=== PATIENT | male | born 1950 | race African-American/Black ===

== ENCOUNTER → 2019-04-03 | Day surgery (SDC) | payer MEDICARE, OTHER ==
--- NOTE | 2019-04-03 14:28 | RADIOLOGY REPORT (SQ) ---
EXAM DESCRIPTION: ARTHRO KNEE NJX CNTRST CT/MRI; FLUORO/NEEDLE PLACEMENT COMPLETED DATE/TIME: 04/03/2019 2:09 pm REASON FOR STUDY: M25.561 PAIN IN RIGHT KNEE M25.561 PAIN IN RIGHT KNEE COMPARISON: None. FLUOROSCOPY TIME: 0.09 minutes 1 images saved to PACS. LIMITATIONS: None. PROCEDURE: Procedure, risks, benefits and alternatives explained to patient who then gave written co nsent. The right knee was marked and a time-out was called for correct marking verification. Entry site marked using fluoroscopic guidance. Knee prepped and draped using sterile technique. Local ane sthesia achieved using 1% lidocaine injection. Hypodermic needle introduced into the joint space und er direct fluoroscopic visualization. Non-ionic contrast instilled to confirm intra-articular positi on. Additional dilute non-ionic contrast instilled. Needle removed and entry site covered with ster ile bandage. No immediate complications noted. TECHNIQUE: Digital images acquired during fluoroscopy and stored on PACS. Patient immediately take n to the CT suite for additional imaging. INJECTION LOCATION: Right knee. CONTRAST TYPE AND AMOUNT: 35 mL Omnipaque 300 IMPRESSION: SUCCESSFUL NEEDLE PLACEMENT AND INJECTION FOR RIGHT KNEE CT ARTHROGRAM. COMMENT: Quality ID 145: Final reports for procedures using fluoroscopy that document radiation exp osure indices, or exposure time and number of fluorographic images (if radiation exposure indices are not available) TECHNICAL DOCUMENTATION: JOB ID: [id number] [employer]- All Rights Reserved Reading location - IP/workstation name: [email or web address]
--- NOTE | 2019-04-03 15:20 | RADIOLOGY REPORT (SQ) ---
EXAM DESCRIPTION: CT RT LOWER EXTREMITY WITH COMPLETED DATE/TIME: 04/03/2019 1:53 pm REASON FOR STUDY: M25.561 PAIN IN RIGHT KNEE M25.561 PAIN IN RIGHT KNEE COMPARISON: None. TECHNIQUE: Post arthrographic imaging performed through the right knee with reformatted coronal and sagittal imaging windowed for bone and soft tissues. All CT scanners at this facility use dose modulation, iterative reconstruction, and/or weight based d osing when appropriate to reduce radiation dose to as low as reasonably achievable (ALARA). [facility]: Dose Right [facility]: CareDose [facility]: Dose Right [facility]: Teradose 4D [facility]: [employer] RADIATION DOSE: 4.7 mGy. LIMITATIONS: None. FINDINGS: SOFT TISSUES: No regional soft tissue masses or radiopaque foreign body noted. BONES: No suspicious bone lesion. No fracture. JOINT DISTENTION: Adequate distention with contrast. No intra-articular bodies. CHONDRAL SURFACES: Mild chondromalacia in the medial compartment MENISCI: Complex tear mid body medial meniscus best shown on coronal images 22-32. OTHER: No other significant finding. IMPRESSION: Complex tear mid body medial meniscus n TECHNICAL DOCUMENTATION: JOB ID: [id number] Quality ID # [id number]: Final reports with documentation of one or more dose reduction techniques (e.g., Au tomated exposure control, adjustment of the mA and/or kV according to patient size, use of iterative reconstruction technique) 2010 [employer]- All Rights Reserved Reading location - IP/workstation name: [email or web address]
== END ==
LOC: RAD 12:45
PROVIDERS: ATTEND Orthopaedic Surgery
DX: M25.561 Pain in right knee (principal)
CPT/HCPCS: 27369; 77002

== ENCOUNTER 2019-05-11 09:14 | Day surgery (SDC) | payer MEDICARE, OTHER ==
[2019-05-04 09:14] LABS: APPEARANCE,URINE SLIGHTLY-CLOUDY; BILIRUBIN,URINE NEGATIVE (NEGATIVE); COLOR,URINE YELLOW; GLUCOSE, URINE NEGATIVE (NEGATIVE); KETONES,URINE NEGATIVE (NEGATIVE); LEUKOCYTE ESTERASE,URINE NEGATIVE (NEGATIVE); NITRITE,URINE NEGATIVE (NEGATIVE); PROTEIN,URINE NEGATIVE (NEGATIVE); URINE SPECIFIC GRAVITY 1.016; UROBILINOGEN,URINE NEGATIVE mg/dL (<2.0)
[2019-05-04 09:14] LABS: HEMATOCRIT 50.1 % (37.9-51.0); HEMOGLOBIN 17.3 g/dL (13.5-17.0); MEAN CORPUSCULAR HEMOGLOBIN 30.7 pg (27.0-33.4); MEAN CORPUSCULAR HGB CONC 34.5 g/dL (32.0-36.0); MEAN CORPUSCULAR VOLUME 89 fl (80-97); PLATELET COUNT 230 10^3/uL (150-450); RED BLOOD COUNT 5.63 10^6/uL (4.35-5.55); RED CELL DISTRIBUTION WIDTH 16.1 % (11.5-14.0); WHITE BLOOD COUNT 5.6 10^3/uL (4.0-10.5)
[2019-05-04 09:34] LABS: ANION GAP 10 (5-19); BLOOD UREA NITROGEN 15 mg/dL (7-20); CALCIUM 9.8 mg/dL (8.4-10.2); CARBON DIOXIDE 31 mmol/L (22-30); CHLORIDE 99 mmol/L (98-107); GLUCOSE 85 mg/dL (75-110); POTASSIUM 3.7 mmol/L (3.6-5.0)
--- NOTE | 2019-05-04 16:53 | RADIOLOGY REPORT (SQ) ---
EXAM DESCRIPTION: CHEST PA/LATERAL COMPLETED DATE/TIME: 05/04/2019 9:28 am REASON FOR STUDY: PRE-OP COMPARISON: None. EXAM PARAMETERS: NUMBER OF VIEWS: two views TECHNIQUE: Digital Frontal and Lateral radiographic views of the chest acquired. RADIATION DOSE: NA LIMITATIONS: none FINDINGS: LUNGS AND PLEURA: No opacities, masses or pneumothorax. No pleural effusion. MEDIASTINUM AND HILAR STRUCTURES: No masses or contour abnormalities. HEART AND VASCULAR STRUCTURES: Heart normal size. No evidence for failure. BONES: No acute findings. HARDWARE: Pacemaker. OTHER: No other significant finding. IMPRESSION: NO SIGNIFICANT RADIOGRAPHIC FINDING IN THE CHEST. TECHNICAL DOCUMENTATION: JOB ID: [id number] [employer]- All Rights Reserved Reading location - IP/workstation name: [email or web address]
--- NOTE | 2019-05-04 16:55 | EKG REPORT ---
SEVERITY:- ABNORMAL ECG - ATRIAL-SENSED VENTRICULAR-PACED COMPLEXES NONSPECIFIC IVCD WITH LAD : Confirmed by: Kerline Queen MD 04-May-2019 16:54:43
[~2019-05-11 09:14] MED LIST: ALBUTEROL SULFATE 0.083% NEB 2.5 MG/3 ML AMPUL NEB PRN; CEFAZOLIN SODIUM 2 GM in DEXTROSE 5%-WATER 100 ML IV PRN; DEXAMETHASONE SOD PHOSPHATE INJ 4 MG/1 ML VIAL ONE; FENTANYL CITRATE INJ/PF 100 MCG/2 ML AMPUL ONE; LACTATED RINGERS 1000 ML IV PRN; LIDOCAINE 0.5% INJ-PF (5 MG/ML) 50 ML SDV SUBCUT PRN; MIDAZOLAM 2 MG/2 ML INJ ONE; ONDANSETRON HCL INJ/PF 4 MG/2 ML SDV ONE; PROPOFOL INJ 200 MG/20 ML VIAL IV ONE
[2019-05-11] MEDS ORDERED: FENTANYL CITRATE INJ/PF 100 MCG/2 ML AMPUL ONE (10:28)
[2019-05-11] MEDS ORDERED: MIDAZOLAM 2 MG/2 ML INJ ONE (10:30)
[2019-05-11] MEDS ORDERED: PROPOFOL INJ 200 MG/20 ML VIAL IV ONE (10:30)
[2019-05-11] MEDS ORDERED: BUPIVACAINE HCL 0.5 % INJ/PF 30 ML SDV ONE (10:31)
[2019-05-11] MEDS ORDERED: LIDOCAINE 1%/EPINEPHRINE INJ 20 ML VIAL ONE (10:31)
[2019-05-11 10:39] LABS: PROTHROMBIN TIME 15.3 SEC (11.4-15.4)
[2019-05-11 10:40] LABS: PARTIAL THROMBOPLASTIN TIME 32.6 SEC (23.5-35.8)
[2019-05-11] MEDS ORDERED: ALBUTEROL SULFATE 0.083% NEB 2.5 MG/3 ML AMPUL NEB ONE (11:00)
[2019-05-11] MEDS ORDERED: FENTANYL CITRATE INJ/PF 100 MCG/2 ML AMPUL IV PRN ×3 (12:09)
[2019-05-11] MEDS ORDERED: PROMETHAZINE HCL INJ 25 MG/1 ML VIAL IV PRN (12:09)
[2019-05-11] MEDS ORDERED: MEPERIDINE HCL/PF INJ 25 MG/1 ML DISP.SYRIN IV PRN (12:09)
[2019-05-11] MEDS ORDERED: DIPHENHYDRAMINE HCL 50 MG/ML VIAL IV PRN (12:09)
--- NOTE | 2019-05-11 12:27 | Operative Report ---
Operative Report DATE OF SURGERY: 05/11/19 PREOPERATIVE DIAGNOSIS: Right medial meniscal tear POSTOPERATIVE DIAGNOSIS: Right medial meniscal tear. 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 Intact ACL. Grade 1 chondral malacia lateral compartment. Lateral meniscal tear. Grade 2 chondral malacia the patellofemoral compartment OPERATION: Arthroscopic right partial medial and lateral meniscectomy SURGEON: LISSETH BELL ANESTHESIA: LMAC ESTIMATED BLOOD LOSS: Minimal PROCEDURE: With the patient supine on the operative table the right lower extremities prepped and draped in sterile fashion. The knee is insufflated with accommodation Marcaine, Xylocaine, and epinephrine through medial lateral patella portals. Portals are created in the arthroscopic equipment is introduced. The joint is examined in systematic fashion findings as above. Using combination of basket Lin, mechanical shaver, and electric frequency ablation probe a partial medial meniscectomy was performed from proximally 4:00 to 12:00 on the face of the dial. Similarly a partial lateral meniscectomy was performed from approximately 8:00 to 12:00 on the face of the dial. The joint is again examined in systematic fashion no new findings. Instrumentation was removed. Portals reapproximated interrupted nylon. A sterile compressive dressing was applied and the patient's return to the PACU in satisfactory condition.
--- NOTE | 2019-05-11 12:30 | Discharge Summary ---
Discharge Summary (SDC) - Discharge Final Diagnosis: Right medial meniscal tear Date of Surgery: 05/11/19 Discharge Date: 05/11/19 Condition: Good Treatment or Instructions: Weightbearing as tolerated. Remove compressive wrap on Saturday. Underlying OpSite dressing can be left intact until you return to the office. You may shower but do not immerse the extremity in a bath or a pool. Prescriptions: Oxycodone HCl/Acetaminophen [Percocet 5-325 mg Tablet] 1 tab PO Q6 PRN #25 tab PRN Reason: Referrals: NARCISO OLIVER MD [Primary Care Provider] - Discharge Diet: Regular Respiratory Treatments at Home: Deep Breathing/Coughing Discharge Activity: Balance Activity w/Rest, No tub bath Home Care Assistance: None Needed Report the Following to Your Physician Immediately: Shortness of Breath, Fever over 101 Degrees, Drainage-Foul Smelling
[2019-05-11 14:13] VITALS: BP 128/70
== END 2019-05-11 14:05 | disposition home or self-care (01) ==
LOC: OROUT 09:14
PROVIDERS: ATTEND Orthopaedic Surgery
DX: M23.303 Other meniscus derangements, unspecified medial meniscus, right knee (principal); M23.300 Other meniscus derangements, unspecified lateral meniscus, right knee; M22.41 Chondromalacia patellae, right knee; I10 Essential (primary) hypertension; E78.5 Hyperlipidemia, unspecified; I25.10 Atherosclerotic heart disease of native coronary artery without angina pectoris; Z79.01 Long term (current) use of anticoagulants; Z79.899 Other long term (current) drug therapy; Z95.0 Presence of cardiac pacemaker; Z87.891 Personal history of nicotine dependence
CPT/HCPCS: 93005; 36415 ×2; 84132; 85027; 85610; 85730; 80048; 81001; 71046; 93010; 29880; J2250; J3490 ×2; J0690; J3010; J7060; J2704; A9270; 1400; J1100; J2405

== ENCOUNTER → 2019-07-17 | Outpatient (CLI) | payer MEDICARE, OTHER ==
[2019-07-17 09:09] LABS: ABSOLUTE BASOPHILS # (AUTO) 0.1 10^3/uL (0.0-0.2); ABSOLUTE EOSINOPHILS # (AUTO) 0.1 10^3/uL (0.0-0.6); ABSOLUTE LYMPHOCYTES (AUTO) 1.9 10^3/uL (0.5-4.7); ABSOLUTE MONOCYTES (AUTO) 0.4 10^3/uL (0.1-1.4); ABSOLUTE NEUT (AUTO) 3.4 10^3/uL (1.7-8.2); BASOPHILS % (AUTO) 0.9 % (0-2); EOSINOPHILS % (AUTO) 2.4 % (0-6); HEMATOCRIT 46.2 % (37.9-51.0); HEMOGLOBIN 16.5 g/dL (13.5-17.0); LYMPHOCYTES % (AUTO) 32.4 % (13-45); MEAN CORPUSCULAR HEMOGLOBIN 31.4 pg (27.0-33.4); MEAN CORPUSCULAR HGB CONC 35.6 g/dL (32.0-36.0); MEAN CORPUSCULAR VOLUME 88 fl (80-97); MONOCYTES % (AUTO) 7.4 % (3-13); PLATELET COUNT 264 10^3/uL (150-450); RED BLOOD COUNT 5.24 10^6/uL (4.35-5.55); RED CELL DISTRIBUTION WIDTH 14.6 % (11.5-14.0); SEGMENTED NEUTROPHILS % (AUTO) 56.9 % (42-78); TOTAL CELLS COUNTED % (AUTO) 100 %
[2019-07-17 09:28] LABS: ANION GAP 11 (5-19); BLOOD UREA NITROGEN 14 mg/dL (7-20); CALCIUM 9.5 mg/dL (8.4-10.2); CARBON DIOXIDE 29 mmol/L (22-30); CHLORIDE 100 mmol/L (98-107); GLUCOSE 102 mg/dL (75-110); POTASSIUM 3.4 mmol/L (3.6-5.0)
--- NOTE | 2019-07-17 10:11 | RADIOLOGY REPORT (SQ) ---
EXAM DESCRIPTION: CT ABD/PELVIS WITH IV ORAL COMPLETED DATE/TIME: 07/17/2019 8:44 am REASON FOR STUDY: DIVERTICULITIS OF LARGE INTESTINE W/PERFORATION AND ABSCESS W/O BLEEDING (K K57.20 DVTRCLI OF LG INT W PERFORATION AND ABSCESS W/O BLEED COMPARISON: None. TECHNIQUE: CT scan of the abdomen and pelvis performed using helical scanning technique with dynamic intravenous contrast injection. Patient was given oral contrast. Images reviewed with lung, soft ti ssue, and bone windows. Reconstructed coronal and sagittal MPR images reviewed. Delayed images for ev aluation of the urinary system also acquired. All images stored on PACS. All CT scanners at this facility use dose modulation, iterative reconstruction, and/or weight based d osing when appropriate to reduce radiation dose to as low as reasonably achievable (ALARA). [facility]: Dose Right [facility]: CareDose [facility]: Dose Right [facility]: Teradose 4D [facility]: [email or web address] CONTRAST TYPE AND DOSE: contrast/concentration: Isovue 350.00 mg/ml; Total Contrast Delivered: 100.0 ml; Total Saline Delivered: 72.0 ml RENAL FUNCTION: 1.2 creatinine RADIATION DOSE: CT Rad equipment meets quality standard of care and radiation dose reduction techniq ues were employed. CTDIvol: 12.8 - 12.9 mGy. DLP: 1317 mGy-cm.. LIMITATIONS: None. FINDINGS: LOWER CHEST: Partially visualized pacer leads. No acute findings. LIVER: Normal size. No masses. No dilated ducts. SPLEEN: Normal size. No focal lesions. PANCREAS: No masses. No significant calcifications. No adjacent inflammation or peripancreatic fluid collections. Pancreatic duct not dilated. GALLBLADDER: No identified stones by CT criteria. No inflammatory changes to suggest cholecystitis. ADRENAL GLANDS: No significant masses or asymmetry. RIGHT KIDNEY AND URETER: No solid masses. 17 mm cyst. No significant calcifications. No hydronep hrosis or hydroureter. LEFT KIDNEY AND URETER: No solid masses. No significant calcifications. No hydronephrosis or hydr oureter. AORTA AND VESSELS: No aneurysm. No dissection. Renal arteries, SMA, celiac without stenosis. RETROPERITONEUM: No retroperitoneal adenopathy, hemorrhage or masses. BOWEL AND PERITONEAL CAVITY: Multiple scattered colonic diverticula. No definite findings to suggest acute diverticulitis. No evidence of intestinal obstruction. No focal bowel wall thickening. APPENDIX: Not visualized. PELVIS: Decompressed urinary bladder. Prostatomegaly measuring 6.6 cm transversely. No lymphadenopa thy. No free fluid. ABDOMINAL WALL: No masses. Bilateral fat containing inguinal hernias, right greater than left. Tiny umbilical hernia. BONES: No significant or acute findings. OTHER: No other significant finding. IMPRESSION: 1. Diverticulosis without definitive findings of diverticulitis. No drainable collecti ons. 2. Prostatomegaly measuring 6.6 cm transversely. No lymphadenopathy. 3. 1 cm indeterminate hypodense lesion within the spleen, possibly postinfectious/traumatic cyst alt anupam incompletely characterized due to size. 4. Bilateral fat containing inguinal hernias. Additional chronic findings as above. TECHNICAL DOCUMENTATION: JOB ID: [id number] Quality ID # [id number]: Final reports with documentation of one or more dose reduction techniques (e.g., Au tomated exposure control, adjustment of the mA and/or kV according to patient size, use of iterative reconstruction technique) 2010 [email or web address]- All Rights Reserved Reading location - IP/workstation name: [email or web address]
== END ==
LOC: RAD 07:58
PROVIDERS: ATTEND Internal Medicine Gastroenterology
DX: K57.20 Diverticulitis of large intestine with perforation and abscess without bleeding (principal)
CPT/HCPCS: 36415; 74177; 80048; 82565; 85025